=== PATIENT | female | born 1990 | race American Indian/Alaskan Native ===

== ENCOUNTER 2020-03-13 17:27 | Emergency (ER) | payer OTHER ==
[~2020-03-13] VITALS: Ht 162.6 cm; Wt 106.0 kg
[2020-03-13] MEDS ORDERED: mvi (17:34)
[2020-03-13] MEDS ORDERED: FLON1SPR NARES (17:34)
[2020-03-13] MEDS ORDERED: CLARITIN D (17:34)
[2020-03-13 19:00] VITALS: BP 118/86
== END 2020-03-13 19:07 | disposition home or self-care (01) ==
LOC: M ED 17:27
DX: J02.9 Acute pharyngitis, unspecified (principal); J30.2 Other seasonal allergic rhinitis; Z79.899 Other long term (current) drug therapy